=== PATIENT | male | born 1960 | race Caucasian/White ===

== ENCOUNTER 2017-06-19 10:34 | Emergency (ER) | payer OTHER ==
--- NOTE | 2017-06-19 11:25 | EDPHY ---
H & P Stated Complaint: R calf pain and swelling x 2 days Time Seen by Provider: 06/19/17 10:44 HPI/ROS: CHIEF COMPLAINT: Right calf swelling x3 days HISTORY OF PRESENT ILLNESS: 56-year-old male generally healthy no vasculopathy history complaining of atraumatic right calf swelling, pain-free. No discoloration. No immobilization history. No malignancy history. No trauma history. No dyspnea. No chest pain. PRIMARY CARE PROVIDER: Dr. Shivam Cat REVIEW OF SYSTEMS: A ten point review of systems was performed and is negative with the exception of the items mentioned in the HPI PAST MEDICAL & SURGICAL HISTORY: No pertinent medical or surgical history SOCIAL HISTORY:Nonsmoker PHYSICAL EXAM (Prior to examination, patient consented to physical exam, hands were washed and my usual and customary physical exam procedures followed) 1) GENERAL: Well-developed, well-nourished, alert and oriented. Appears to be in no acute distress. 2) HEAD: Normocephalic, atraumatic 3) HEENT: Pupils equal, round, reactive to light bilaterally. Sclera anicteric. 4) NECK: Full range of motion, no meningeal signs. 5) LUNGS: Clear auscultation bilaterally, no wheezes, no rhonchi, no retractions. 6) HEART: Regular rate and rhythm, no murmur, no heave, no gallop. 7) ABDOMEN: No guarding, no rebound, no focal tenderness, negative McBurney's, negative Fuentes's, negative Rovsing's, negative peritoneal sign, 8) MUSCULOSKELETAL: Right lower extremity: Asymmetrical soft tissue swelling, soft compartments, no pitting edema, DP PT pulses present and brisk, brisk capillary refill distally. Normal color normal temperature. 9) BACK: No CVA tenderness, no midline vertebral tenderness, no fluctuance, no step-off, no obvious trauma, no visual or palpable abnormality. 10) SKIN: No rash, no petechiae. 11) Psychiatric: Patient is oriented X 3, there is no agitation. DIFFERENTIAL DIAGNOSIS: In no particular include but limited to DVT, compartment syndrome, arterial occlusion - Medical/Surgical History Hx Asthma: No Hx Chronic Respiratory Disease: No Hx Diabetes: No Hx Cardiac Disease: No Hx Renal Disease: No Hx Cirrhosis: No Hx Alcoholism: No Hx HIV/AIDS: No Hx Splenectomy or Spleen Trauma: No Other PMH: denies - Social History Smoking Status: Never smoked Constitutional: Initial Vital Signs Temperature (C) 37.0 C 06/19/17 10:36 Heart Rate 79 06/19/17 10:36 Respiratory Rate 16 06/19/17 10:36 Blood Pressure 135/84 H 06/19/17 10:36 O2 Sat (%) 96 06/19/17 10:36 O2 Delivery Mode Room Air Allergies/Adverse Reactions: No Known Allergies Allergy (Unverified 06/19/17 10:36) Home Medications: Medication Instructions Recorded Rivaroxaban [Xarelto 15mg (*)] 15 mg PO BID #42 tab 06/19/17 Medical Decision Making - Diagnostics Imaging Results: Imaging Impressions Extremity Venous Study 06/19/17 10:54 Impression: Evidence of deep venous thrombosis in the distal femoral vein, popliteal vein, and calf vein of the right leg. Results called and discussed with Ron Cristina PA-C on June 19, 2017 at 1224 hours. Images reviewed myself ED Course/Re-evaluation: 12:48 p.m.: Patient re-evaluated with serial exams. Discussed his imaging results positive for DVT. Plan will be starting the patient on Xarelto, follow up with his PCP. He denies chest pain, dyspnea, is neurovascular intact. Doubt arterial occlusion. Care of patient under supervision of secondary supervising physician Dr Johnny Duarte with whom I discussed case. - Data Points Laboratory Results: Laboratory Results 06/19/17 12:50 06/19/17 12:50 06/19/17 06/19/17 06/19/17 12:50 12:50 12:50 WBC 1.69 10^3/uL L 10^3/uL (3.80-9.50) RBC 2.96 10^6/uL L 10^6/uL (4.40-6.38) Hgb 11.4 g/dL L g/dL (13.7-17.5) Hct 31.7 % L % (40.0-51.0) MCV 107.1 fL H fL (81.5-99.8) MCH 38.5 pg H pg (27.9-34.1) MCHC 36.0 g/dL g/dL (32.4-36.7) RDW 12.9 % % (11.5-15.2) Plt Count 50 10^3/uL L 10^3/uL (150-400) MPV 9.7 fL fL (8.7-11.7) Neut % (Auto) 24.8 % L % (39.3-74.2) Lymph % (Auto) 71.0 % H % (15.0-45.0) Cache % (Auto) 1.8 % L % (4.5-13.0) Eos % (Auto) 1.8 % % (0.6-7.6) Baso % (Auto) 0.0 % L % (0.3-1.7) Nucleat RBC Rel Count 0.0 % % (0.0-0.2) Absolute Neuts (auto) 0.42 10^3/uL L 10^3/uL (1.70-6.50) Absolute Lymphs (auto) 1.20 10^3/uL 10^3/uL (1.00-3.00) Absolute Monos (auto) 0.03 10^3/uL L 10^3/uL (0.30-0.80) Absolute Eos (auto) 0.03 10^3/uL 10^3/uL (0.03-0.40) Absolute Basos (auto) 0.00 10^3/uL L 10^3/uL (0.02-0.10) Absolute Nucleated RBC 0.00 10^3/uL 10^3/uL (0-0.01) Immature Gran % 0.6 % % (0.0-1.1) Immature Gran # 0.01 10^3/uL 10^3/uL (0.00-0.10) PT 13.1 SEC SEC (12.0-15.0) INR 0.97 (0.83-1.16) APTT 31.3 SEC SEC (23.0-38.0) Sodium 139 mEq/L mEq/L (135-145) Potassium 3.9 mEq/L mEq/L (3.5-5.2) Chloride 103 mEq/L mEq/L (97-110) Carbon Dioxide 20 mEq/l L mEq/l (22-31) Anion Gap 16 mEq/L mEq/L (8-16) BUN 9 mg/dL mg/dL (7-23) Creatinine 0.8 mg/dL mg/dL (0.7-1.3) Estimated GFR > 60 Glucose 91 mg/dL mg/dL (70-100) Calcium 9.3 mg/dL mg/dL (8.5-10.4) Medications Given: Discontinued Medications Rivaroxaban (Xarelto) 15 mg PO EDNOW ONE Stop: 06/19/17 12:51 Last Admin: 06/19/17 12:59 Dose: 15 mg Departure - Departure Disposition: Home, Routine, Self-Care Clinical Impression: Right femoral vein DVT Qualifiers: Chronicity: acute Qualified Code(s): I82.411 - Acute embolism and thrombosis of right femoral vein Condition: Good Instructions: Deep Vein Thrombosis (ED) Additional Instructions: Return to the ER immediately if you experience discoloration, have worsening pain, numbness, tingling, or any other symptoms that concern you. If you received x-rays in the emergency department today, be advised, that ligamentous , tendon, muscular, and other non-bony injury cannot be fully ruled out. Referrals: Shivam Cat, [Primary Care Provider] - As per Instructions Prescriptions: Rivaroxaban [Xarelto 15mg (*)] 15 mg PO BID #42 tab
[2017-06-19] MEDS ORDERED: RIVAROXABAN 15 MG TAB PO ONE (12:50)
[2017-06-19 12:55] VITALS: PULSE 68
[2017-06-19 12:58] LABS: PLATELET COUNT 50 10^3/uL (150-400)
[2017-06-19 13:12] LABS: INR 0.97 (0.83-1.16); PROTIME(PATIENT) 13.1 SEC (12.0-15.0)
[2017-06-19 13:28] VITALS: BP 116/87; RESP 15; TEMP 97.5; O2SAT 97
== END 2017-06-19 13:30 | disposition home or self-care (01) ==
DX: I82.411 Acute embolism and thrombosis of right femoral vein (principal)